=== PATIENT | male | born 1955 | race Caucasian/White ===

== ENCOUNTER 2017-11-20 11:42 | Day surgery (SDC) | payer OTHER ==
[~2017-11-20] VITALS: Ht 188 cm; Wt 118.0 kg
[~2017-11-20 11:42] MED LIST: ATEN25 PO; CARV25; EXEN5PENI; GLIP10ER; METF500
[2017-11-20] MEDS ORDERED: PREG150 PO (12:52)
[2017-11-20] MEDS ORDERED: ATOR40TA PO (12:53)
[2017-11-20] MEDS ORDERED: CARV25 PO (12:59)
[2017-11-20] MEDS ORDERED: LOSA25 PO (12:59)
[2017-11-20] MEDS ORDERED: INSULANPEN SC (13:00)
[2017-11-20] MEDS ORDERED: LIRA0.6P SC (13:00)
== END 2017-11-20 14:08 | disposition home or self-care (01) ==
LOC: ORSCSDS 11:42
PROVIDERS: Ophthalmology
PROC: 08RJ3JZ Replacement of Right Lens with Synthetic Substitute, Percutaneous Approach (ICD-10-PCS; principal; 2017-11-20 13:30)
DX: H25.11 Age-related nuclear cataract, right eye (principal); E11.9 Type 2 diabetes mellitus without complications; I10 Essential (primary) hypertension; K21.9 Gastro-esophageal reflux disease without esophagitis; E66.9 Obesity, unspecified; Z68.33 Body mass index [BMI] 33.0-33.9, adult; F17.210 Nicotine dependence, cigarettes, uncomplicated; Z79.4 Long term (current) use of insulin; Z79.899 Other long term (current) drug therapy
CPT/HCPCS: 82947; J2250; J3010; J7040; V2632

== ENCOUNTER 2017-12-11 10:36 | Day surgery (SDC) | payer OTHER ==
[~2017-12-11] VITALS: Ht 188 cm; Wt 116.1 kg
[~2017-12-11 10:36] MED LIST changes: +ATOR40TA PO; +CARV25 PO; +INSULANPEN SC; +LIRA0.6P SC; +LOSA25 PO; +PREG150 PO
== END 2017-12-11 13:12 | disposition home or self-care (01) ==
LOC: ORSCSDS 10:36
PROVIDERS: Ophthalmology
PROC: 08RK3JZ Replacement of Left Lens with Synthetic Substitute, Percutaneous Approach (ICD-10-PCS; principal; 2017-12-11 12:30)
DX: H25.12 Age-related nuclear cataract, left eye (principal); G47.33 Obstructive sleep apnea (adult) (pediatric); I10 Essential (primary) hypertension; E11.9 Type 2 diabetes mellitus without complications; E66.9 Obesity, unspecified; Z68.32 Body mass index [BMI] 32.0-32.9, adult; F17.210 Nicotine dependence, cigarettes, uncomplicated; Z79.4 Long term (current) use of insulin; Z79.899 Other long term (current) drug therapy
CPT/HCPCS: 82947; J2250; J7040; V2632

== ENCOUNTER 2021-08-02 06:18 | Day surgery (SDC) | payer OTHER ==
[~2021-08-02] VITALS: Ht 188 cm; Wt 98.0 kg
[2021-08-02] MEDS ORDERED: NORVASC5 MG PO (06:51)
[2021-08-02] MEDS ORDERED: ATOR10 PO (06:52)
[2021-08-02] MEDS ORDERED: EUTHYROX125 MCG PO (06:52)
[2021-08-02] MEDS ORDERED: ERGO50000 PO (06:53)
[2021-08-02] MEDS ORDERED: CALCIUM CARBON500 M1 PO (06:54)
[2021-08-02] MEDS ORDERED: LOSA50 PO (06:55)
[2021-08-02] MEDS ORDERED: JARDIANCE25 MG PO (06:55)
[2021-08-02] MEDS ORDERED: METF500 PO (06:56)
[2021-08-02] MEDS ORDERED: OZEMPIC1 MG/0.72 SC (06:56)
--- NOTE | 2021-08-02 08:15 | NUR ---
PT TO RECOVERY ROOM POST PROCEDURE. PT REMAINS CONFUSED TO PLACE, TIME AND CIRCUMSTANCES. PT ASKS "WHERE AM I AND WHY AM I HERE?" PT REORIENTED MULTIPLE TIMES WITH POOR RESULTS. PT NEURO EVAL DOES NOT SHOW ANY FOCAL DEFICITS. MONITOR SECOND DEGREE HB TYPE 1 50'S, B/P 122/82, SPO2 93% RA. R RADIAL SITE NO SWELLING/HEMATOMA, TR BAND IN PLACE 10 ML AIR; RUE POSITIVE PLEUTH POST TR BAND PLACEMENT. DR LEE NOTIFIED OF PT'S CONTINUED CONFUSION, WILL COME REEVALUATE.
--- NOTE | 2021-08-02 08:17 | NUR ---
DR LEE HERE TO EVALUATE PT'S NEURO STATUS.
--- NOTE | 2021-08-02 08:43 | NUR ---
REPORT GIVEN TO LONNIE OLIVAS ALL; ALL QUESTIONS ANSWERED.
--- NOTE | 2021-08-02 09:14 | NUR ---
0845 SBAR RECEIVED FROM LONNIE PATTEN ON PATIENT S/P CORONARY ANGIOGRAM. PATIENT IS HARD TO WAKE. NOT ORIENTED TO PLACE OR TIME. BILATERAL HAND SQUEEZE, BILATERAL FOOT PEDAL PUSH/PULL EQUAL. DOES NOT REMEMBER THE EVENTS OF TODAY, TIME PLACE OR EVENTS. PATIENT IS ON THE MONITOR, SIDE RAILS UP X 2 CALL LIGHT IN REACH. TR BAND IN PLACE TO THE RIGHT RADIAL WITH 10 ML OF AIR TO THE BAND. NO BLEEDING NOTED. NO HEMATOMA NOTED.
--- NOTE | 2021-08-02 09:18 | NUR ---
8205 DR. LEE TO THE BEDSIDE. PATIENT WITH EYES CLOSED. UPDATED ON PREVIOUS ASSESSMENT.
--- NOTE | 2021-08-02 09:20 | NUR ---
PATEINT IS AWAKE AND C/O HEADACHE. 01/13 RATED. PATIENT ABLE TO STAYING AWAKE BY ASKING REPETATIVE QUESTIONS. ASKING FOR RADHA HIS FIANCE.
--- NOTE | 2021-08-02 11:01 | NUR ---
DR. LEE AT THE BEDSIDE AND SPOKE TO THE PATIENT AND GIRLFRIEND REGARDING RESULTS OF CORONARY ANGIOGRAM. NEED FOR BYPASS. PATIENT STILL EXHIBITING MEMORY ISSUES BUT KNOWS NAME, PLACE, AND SURROUNDINGS.
--- NOTE | 2021-08-02 11:06 | NUR ---
DR. LEE WANTS TO CONTINUE TO MONITOR PATIENT FOR A WHILE LONGER. PIV WAS REMOVED AND PATIENT WAS UP AND PARTIALLY DRESSED. PATIENT BED SWITCHED TO A RECLINER FOR COMFORT.
--- NOTE | 2021-08-02 12:17 | NUR ---
DR. LEE AT THE BEDSIDE FOR NEURO REEVALUATION AND SPOKE WITH THE PATIENT AND GIRLFRIEND. PLAN TO DISCHARGE HOME AND STAY IN [facility] AND WILL GO HOME TOMORROW. PATIENT WILL FOLLO WUP WITH CV SURGERY NEXT WEEK. PIV ALREADY REMOVED. PATIENT IS DRESSED. TR BAND REMOVED, SITE CLEANED. CLOTH DOTS PLACED AND WHITE BOARD REPLACED. PATIENT DISCHARGED VIA WHEELCHAIR.
== END 2021-08-02 11:00 | disposition home or self-care (01) ==
LOC: MHTC 06:18
DX: I25.118 Atherosclerotic heart disease of native coronary artery with other forms of angina pectoris (principal); I25.82 Chronic total occlusion of coronary artery; I10 Essential (primary) hypertension; E11.9 Type 2 diabetes mellitus without complications; Z79.4 Long term (current) use of insulin
CPT/HCPCS: 93454; 99152; 99153; C1769; C1887; C1894; J1644; J2250; J3010; J7030; Q9967

== ENCOUNTER 2021-10-01 11:37 | Emergency (ER) | payer OTHER ==
[~2021-10-01] VITALS: Ht 188 cm; Wt 92.5 kg
[~2021-10-01 11:37] MED LIST changes: +ATOR10 PO; +CALCIUM CARBON500 M1 PO; +ERGO50000 PO; +EUTHYROX125 MCG PO; +JARDIANCE25 MG PO; +LOSA50 PO; +METF500 PO; +NORVASC5 MG PO; +OZEMPIC1 MG/0.72 SC
[2021-10-01] MEDS ORDERED: GABA100 PO (12:08)
[2021-10-01] MEDS ORDERED: METO25ER PO (12:08)
[2021-10-01] MEDS ORDERED: OXAYDO5 M1 PO (12:09)
[2021-10-01] MEDS ORDERED: Acetaminophen650 M1 PO (12:09)
[2021-10-01] MEDS ORDERED: MIRALAX17 GM PO (12:10)
[2021-10-01] MEDS ORDERED: ASCO500 PO (12:11)
[2021-10-01] MEDS ORDERED: Calcium Carbon500 MG PO (12:11)
[2021-10-01 13:12] LABS: BASOPHILS ABSOLUTE AUTO 0.04 K/mm3 (0.00-0.23); BASOPHILS PERCENT AUTO 1 % (0-2); EOSINOPHILS ABSOLUTE AUTO 0.36 K/mm3 (0.00-0.68); EOSINOPHILS PERCENT AUTO 5 % (0-6); Hematocrit 32.7 % (37.0-53.0); Hemoglobin 10.5 g/dL (13.5-17.5); IMMATURE GRAN ABSOLUTE AUTO 0.05 K/mm3 (0.00-0.10); IMMATURE GRAN PERCENT AUTO 1 % (0-1); LYMPHOCYTES ABSOLUTE AUTO 1.41 K/mm3 (0.84-5.20); LYMPHOCYTES PERCENT AUTO 20 % (21-46); MONOCYTES ABSOLUTE AUTO 0.62 K/mm3 (0.16-1.47); MONOCYTES PERCENT AUTO 9 % (4-13); Mean Corpuscular HGB 29.7 pg (26.0-34.0); Mean Corpuscular HGB Conc 32.1 g/dL (31.5-36.5); Mean Corpuscular Volume 92 fL (80-100); Mean Platelet Volume 9.3 fL (9.1-12.4); NEUTROPHILS ABSOLUTE AUTO 4.71 K/mm3 (1.96-9.15); NEUTROPHILS PERCENT AUTO 66 % (41-73); Platelet Count 510 K/mm3 (150-400); RDW Standard Deviation 49.2 fL (35.1-46.3); Red Blood Cell Count 3.54 M/mm3 (4.30-5.90); White Blood Cell Count 7.19 K/mm3 (4.00-11.30)
[2021-10-01 13:17] LABS: Alanine Aminotransfer (ALT/SGP 15 U/L (12-78); Albumin, Blood 3.2 g/dL (3.4-5.0); Albumin/Globulin Ratio 0.9 (0.8-1.8); Alk Phos 104 U/L (50-136); Anion Gap 7 mmol/L (6-16); Aspartate Aminotrans (AST/SGOT 14 U/L (12-37); Bilirubin, Total 0.8 mg/dL (0.1-1.0); Blood Urea Nitrogen 20 mg/dL (8-24); Bun/Creatinine Ratio 20.8 (12.0-20.0); CO2, Blood 28 mmol/L (21-32); Calcium, Blood 9.5 mg/dL (8.5-10.1); Chloride, Blood 103 mmol/L (98-108); Creatinine, Blood 0.96 mg/dL (0.60-1.20); Globulin, Blood 3.4 g/dL (2.2-4.0); Glomerular Filtration Rate >60 (60-); Glucose, Blood 139 mg/dL (70-99); Potassium, Blood 4.5 mmol/L (3.5-5.5); Sodium, Blood 138 mmol/L (136-145); Total Protein, Blood 6.6 g/dL (6.4-8.2)
[2021-10-01] MEDS ORDERED: CEPH500 PO (15:57)
== END 2021-10-01 16:20 | disposition home or self-care (01) ==
LOC: ER 11:37
PROVIDERS: Physician Assistant
DX: I97.631 Postprocedural hematoma of a circulatory system organ or structure following cardiac bypass (principal); L05.01 Pilonidal cyst with abscess; E11.42 Type 2 diabetes mellitus with diabetic polyneuropathy; E78.5 Hyperlipidemia, unspecified; E03.9 Hypothyroidism, unspecified; Z95.1 Presence of aortocoronary bypass graft; Z88.8 Allergy status to other drugs, medicaments and biological substances; Z79.899 Other long term (current) drug therapy
CPT/HCPCS: 36415; 73701; 80053; 83605; 85025; 93926; A9270; J7030; Q9967

== ENCOUNTER 2021-11-05 06:08 | Day surgery (SDC) | payer OTHER ==
[~2021-11-05] VITALS: Ht 188 cm; Wt 97.0 kg
[~2021-11-05 06:08] MED LIST changes: +ASCO500 PO; +Acetaminophen650 M1 PO; +Amlodipine Bes2.5 MG PO; +Aspir 8181 MG PO; +CEPH500 PO; +Calcium Carbon500 MG PO; +GABA100 PO; +METO25ER PO; +MIRALAX17 GM PO; +OXAYDO5 M1 PO
--- NOTE | 2021-11-05 13:42 | NUR ---
PT DRESSED, IV DC'D INTACT, 2V CXR DONE PER ORDER, ANCEF 1 GRAM IN BEFORE DC PER ORDER, PT AMB OUT ON OWN, FIANCEE DRIVING PT BACK TO HOTEL
== END 2021-11-05 13:30 | disposition home or self-care (01) ==
LOC: MHTC 06:08
DX: I44.2 Atrioventricular block, complete (principal); I10 Essential (primary) hypertension; E11.9 Type 2 diabetes mellitus without complications; G89.4 Chronic pain syndrome; Z79.899 Other long term (current) drug therapy; I25.10 Atherosclerotic heart disease of native coronary artery without angina pectoris; Z95.1 Presence of aortocoronary bypass graft
CPT/HCPCS: 33208; 71046; 99152; 99153; C1785; C1894; C1898; J0690; J1580; J1644; J2250; J3010; J7030; J7040; Q9967

== ENCOUNTER 2023-03-14 07:11 | Day surgery (SDC) | payer OTHER ==
[~2023-03-14] VITALS: Ht 188 cm; Wt 108.9 kg
[2023-03-14] VITALS (9 sets, daily range): BP systolic 116–134; BP diastolic 72–91
[~2023-03-14 07:11] MED LIST changes: -EUTHYROX125 MCG PO; +LEVSOD137 PO; +MICONAZOLE NITR85 GM
--- NOTE | 2023-03-14 11:15 | NUR ---
PT BACK TO RECOVERY ROOM, AWAKE. R FEMORAL SITE SOFT, NON TENDER, NO BLEEDING OR SWELLING, RT BAND IN PLACE AT R RADIAL SITE. NO BLEEDING OR SWELLING. PT REMINDED TO KEEP R LEG AND R ARM STILL. PT TOLERATING BREAKFAST.
--- NOTE | 2023-03-14 12:13 | NUR ---
RIGHT FEMORAL GROIN SITE SOFT NON-TENDER WITH NO HEMATOMA, NO BLEEDING AND INTACT DRESSING. RIGHT RADIAL TR BAND SITE SOFT NON-TENDER WITH NO HEMATOMA, NO PULSATILE BLEEDING AND WRIST BOARD IN PLACE. PT'S IN ROOM AND CALL LIGHT IN REACH.
--- NOTE | 2023-03-14 12:21 | NUR ---
RIGHT FOOT IS PINK AND WARM.
--- NOTE | 2023-03-14 12:32 | NUR ---
UNABLE TO HEAR PULSES ON RIGHT FOOT WITH DOPPLER. RIGHT FOOT WARM AND PINK. PT STATES HE HAS PVD AND HAS SPOTTY PULSES ON HIS RIGHT FOOT.
--- NOTE | 2023-03-14 12:34 | NUR ---
DR FIERRO IN ROOM TO SEE PATIENT. RIGHT FEM SITE AND R RAD TR BAND SITES NO CHANGES; BOTH STILL SOFT NON-TENDER WITH NO HEMATMA, NO BLEEDING AND INTACT DRESSING AND WRIST BOARD IN PLACE.
--- NOTE | 2023-03-14 13:00 | NUR ---
10 CC AIR REMOVED FROM R TR BAND. NO BLEEDING, OOZING OR SWELLING NOTED.
--- NOTE | 2023-03-14 14:33 | NUR ---
TR BAND REMOVED, NO BLEEDING OR SWELLING. CLOTH DOT DRESSING APPLIED. R WRIST SPLINT REAPPLIED AND R ARM IN SLING. R FEMORAL SITE SOFT, NON TENDER. PT AMBULATES TO BR, STEADY ON FEET. NO BLEEDING FROM SITES UPON RETURN. PT GETTIND RESSED, SPOUSE AT BEDSIDE.
--- NOTE | 2023-03-14 14:35 | NUR ---
IV D/C CATHETER INTACT, PRESSURE DRESSING APPLIED. PT AND SPOUSE VERBALIZE D/C INSTRUCTIONS. PT GIVEN HIGHTLIGHTED WRITTEN INSTRUCTIONS. PT WHEELED OUT OF DEPT.
== END 2023-03-14 14:50 | disposition home or self-care (01) ==
LOC: MHTC 07:11
DX: I25.708 Atherosclerosis of coronary artery bypass graft(s), unspecified, with other forms of angina pectoris (principal); R07.89 Other chest pain; I25.5 Ischemic cardiomyopathy; E11.9 Type 2 diabetes mellitus without complications; I44.2 Atrioventricular block, complete; I50.20 Unspecified systolic (congestive) heart failure; I11.0 Hypertensive heart disease with heart failure; E78.5 Hyperlipidemia, unspecified
CPT/HCPCS: 76937; 93455; 99152; 99153; C1769; C1894; J1644; J2250; J3010; J7030; J7050; Q9967